=== PATIENT | male | born 1970 | race African-American/Black ===

== ENCOUNTER 2016-11-28 20:44 | Inpatient (IN) | payer MEDICARE, MEDICAID ==
[~2016-11-28] VITALS: Ht 182.9 cm; Wt 74.8 kg
[~2016-11-28 20:44] MED LIST: CLON-457 PO; HYDR-4133 PO; LABE100T PO; LISI-186 PO; NIFE30TA94 PO; REN400 PO
[2016-11-28 21:30] LABS: HEMATOCRIT. 38.2 % (42.0-52.0); HEMOGLOBIN. 12.3 g/dL (14.0-18.0); MEAN CORPUSCULAR HEMOGLOBIN 30.4 pg (28.0-32.0); MEAN CORPUSCULAR HGB CONC 32.3 g/dL (31.0-37.0); MEAN CORPUSCULAR VOLUME 94.1 fL (80.0-94.0); PLATELET 291 x1000/uL (130-400); RED BLOOD CELL COUNT 4.05 mill/uL (4.7-6.1); RED CELL DISTRIBUTION WIDTH 22.8 % (11.6-14.6); WHITE BLOOD COUNT 4.1 x1000/uL (4.5-11.0)
[2016-11-28 21:34] LABS: ALBUMIN 3.1 g/dL (3.4-5.0); ANION GAP 18; CALCIUM 10.3 mg/dL (8.5-10.1); CARBON DIOXIDE 29 mEq/L (21-32); CHLORIDE 92 mEq/L (98-107); INDEX HEMOLYSI 1 (1-3); INDEX ICTERIC 1 (1-4); INDEX LIPEMIC 1 (1-3); UREA NITROGEN BLOOD 23 mg/dL (7-21)
[2016-11-28 21:37] LABS: DIFFERENTIAL COMMENT 1
[2016-11-28 21:39] LABS: ACETAMINOPHEN < 2 ug/mL (10-30); ALANINE AMINOTRANSFERASE 23 IU/L (13-61); ETHANOL BLOOD < 10 mg/dL; eGFR 20 mL/min (>60)
[2016-11-28 21:55] LABS: GIANT PLATELETS FEW; PLATELET ESTIMATE NORMAL
[2016-11-28 21:56] LABS: HYPOCHROMASIA 1+
[2016-11-28 21:57] LABS: ANISOCYTOSIS 2+
[2016-11-29 08:00] VITALS: BP 141/110
[2016-11-29] MEDS ORDERED: CLONIDINE 0.2MG TABLET PO ONE (08:00)
[2016-11-29] MEDS ORDERED: HYDROCODONE/ACETAMINOPHEN 5/325MG TABLET PO PRN (08:40)
[2016-11-29] MEDS ORDERED: DEXT 5%/0.45% NACL 1000ML 1,000 ML IV SCH (08:40)
[2016-11-29 10:30] VITALS: BP 141/110
[2016-11-29] MEDS ORDERED: DIPHENHYDRAMINE 50MG/ML VIAL IV PRN ×2 (10:45)
[2016-11-29] MEDS ORDERED: CLONIDINE 0.2MG TABLET PO PRN (10:45)
[2016-11-29] MEDS ORDERED: BISACODYL 5MG TABLET PO PRN (10:45)
[2016-11-29] MEDS ORDERED: ACETAMINOPHEN 325MG TABLET PO PRN ×2 (10:45)
[2016-11-29] MEDS ORDERED: ONDANSETRON HCL 4MG/2ML VIAL IV PRN (10:45)
[2016-11-29] MEDS ORDERED: HYDROMORPHONE HCL/PF 2MG/ML CPJ IV PRN (10:45)
[2016-11-29] MEDS ORDERED: METOPROLOL TARTRATE 25MG TABLET PO SCH (10:45)
[2016-11-29] MEDS ORDERED: CLONIDINE 0.1MG TABLET PO PRN (10:45)
[2016-11-29] MEDS ORDERED: DOCUSATE SODIUM 100MG CAPSULE PO PRN (10:45)
[2016-11-29] MEDS: AMLODIPINE 10MG TABLET PO SCH (11:43)
[2016-11-29] MEDS: LABETALOL HCL 300MG TABLET PO SCH ×2 (11:44→21:53)
[2016-11-29 12:00] VITALS: BP 118/87
[2016-11-29 16:00] VITALS: BP 119/84
[2016-11-29 20:00] VITALS: BP 144/100
[2016-11-29] MEDS ORDERED: OXYC30TA89 PO (20:01)
[2016-11-29] MEDS ORDERED: RENAGEL PO (20:01)
[2016-11-29] MEDS ORDERED: OXYCODONE HCL 40 MG TABLET SR 12HR PO SCH (21:00)
[2016-11-29] MEDS ORDERED: EPOETIN ALFA 10000UNITS/ML VIAL SUBCUT SCH (21:00)
[2016-11-29] MEDS: OXYCODONE HCL 10MG TABLET SR 12HR PO SCH (21:09)
[2016-11-29] MEDS: OXYCODONE HCL 20MG TABLET SR 12HR PO SCH (21:10)
[2016-11-30] VITALS: BP 109/81
[2016-11-30 04:00] VITALS: BP 111/82
[2016-11-30 08:00] VITALS: BP 116/85
[2016-11-30 08:19] LABS: HEMATOCRIT. 34.6 % (42.0-52.0); MEAN CORPUSCULAR HGB CONC 31.9 g/dL (31.0-37.0); MEAN CORPUSCULAR VOLUME 94.1 fL (80.0-94.0); MEAN PLATELET VOLUME 9.8 fl (7.4-10.4); PLATELET 286 x1000/uL (130-400); RED BLOOD CELL COUNT 3.67 mill/uL (4.7-6.1); RED CELL DISTRIBUTION WIDTH 22.6 % (11.6-14.6); WHITE BLOOD COUNT 5.9 x1000/uL (4.5-11.0)
[2016-11-30 08:20] LABS: DIFFERENTIAL COMMENT 1
[2016-11-30 08:26] LABS: ALANINE AMINOTRANSFERASE 18 IU/L (13-61); ALBUMIN 2.6 g/dL (3.4-5.0); ANION GAP 18; CALCIUM 8.5 mg/dL (8.5-10.1); CARBON DIOXIDE 32 mEq/L (21-32); CHLORIDE 92 mEq/L (98-107); HDL CHOLESTEROL 37 mg/dL (40-59); INDEX HEMOLYSI 1 (1-3); INDEX ICTERIC 1 (1-4); INDEX LIPEMIC 1 (1-3); LDL CHOLESTEROL 72 mg/dL (5-100); TRIGLYCERIDE 91 mg/dL (0-150); UREA NITROGEN BLOOD 38 mg/dL (7-21); eGFR 12 mL/min (>60)
[2016-11-30] MEDS: AMLODIPINE 10MG TABLET PO SCH (09:00)
[2016-11-30] MEDS: LABETALOL HCL 300MG TABLET PO SCH (09:00)
[2016-11-30] MEDS: OXYCODONE HCL 20MG TABLET SR 12HR PO SCH ×2 (09:00→09:21)
[2016-11-30] MEDS ORDERED: FOLIC ACID/VITAMIN B COMP W-C TABLET PO SCH (09:00)
[2016-11-30] MEDS: OXYCODONE HCL 10MG TABLET SR 12HR PO SCH (09:12)
[2016-11-30] MEDS ORDERED: HYDROMORPHONE HCL/PF 2MG/ML CPJ IV PRN (10:45)
[2016-11-30 12:00] VITALS: BP 134/88
[2016-11-30 12:57] LABS: ANISOCYTOSIS 3+
[2016-11-30 12:58] LABS: PLATELET ESTIMATE NORMAL
[2016-11-30 16:00] VITALS: BP 132/105
== END 2016-11-30 16:47 | disposition left against medical advice (07) | DRG 70 ==
LOC: ER 21:14 → 8WST 11-29 01:01
PROVIDERS: ADMIT Hospitalist; ATTEND Hospitalist
PROC: 5A1D00Z (ICD-10-PCS; principal; 2016-11-30)
DX: G93.41 Metabolic encephalopathy (principal); N18.6 End stage renal disease; I12.0 Hypertensive chronic kidney disease with stage 5 chronic kidney disease or end stage renal disease; F11.20 Opioid dependence, uncomplicated; E46 Unspecified protein-calorie malnutrition; S32.2XXA Fracture of coccyx, initial encounter for closed fracture; E16.2 Hypoglycemia, unspecified; Y92.238 Other place in hospital as the place of occurrence of the external cause; W18.30XA Fall on same level, unspecified, initial encounter; G89.4 Chronic pain syndrome; Z99.2 Dependence on renal dialysis; Z68.22 Body mass index [BMI] 22.0-22.9, adult; Z79.899 Other long term (current) drug therapy; Z53.21 Procedure and treatment not carried out due to patient leaving prior to being seen by health care provider; Y93.89 Activity, other specified; Y99.8 Other external cause status; T50.905A Adverse effect of unspecified drugs, medicaments and biological substances, initial encounter; Y92.9 Unspecified place or not applicable
CPT/HCPCS: 36415; 70450; 71010; 80053; 80061; 80307; 80329; 82962; 85025; 96360; 97162; 99285; G0482; J1170; J7030